=== PATIENT | female | born 1950 | race Caucasian/White ===

== ENCOUNTER 2021-06-12 14:03 | Emergency (ER) | payer BC, MEDICARE ==
--- NOTE | 2021-06-12 15:29 | EDM.PDOC ---
ED HPI GENERAL MEDICAL PROBLEM - General Chief Complaint: Chest Pain Stated Complaint: CHEST PAIN AND HIGH BLOOD PRESSURE Time Seen by Provider: 06/12/21 14:50 Source of Information: Reports: Patient History Limitations: Reports: No Limitations - History of Present Illness INITIAL COMMENTS - FREE TEXT/NARRATIVE: 71-year-old female, usually healthy, has had mild chest discomfort and mild cough for the past 2 days, no fevers or chills but just generalized malaise. She went into the urgent care to discuss her symptoms and they sent her to the emergency room. No nausea or vomiting, no significant shortness of breath, the pain does get a little worse with a deep breath. Now that she is here in the emergency room she is feeling better. No cardiac history. She is fully va ccinated for Covid. She was actually at the clinic this morning for follow-up blood tests because of her medications but she did not mention any of her symptoms at that time, when she called later to ask if she could come back and talk about the symptoms that is when they told her to come here. Onset: Gradual Duration: Day(s): (Symptoms for the last 2 days) Location: Reports: Chest (Mild chest pressure, no radiation) Quality: Reports: Pressure Associated Symptoms: Reports: Cough (Minimal cough), Malaise, Weakness. Denies: Fever/Chills, Nausea/Vomiting, Shortness of Breath Left Chest Pain Score (Numeric/FACES): 6 - Related Data Allergies Allergy/AdvReac Type Severity Reaction Status Date / Time codeine Allergy Intermediate Vomiting Verified 06/12/21 14:27 Home Meds: Home Meds Alendronate [Fosamax] 70 mg PO WEEKLY 06/12/21 [History] Levothyroxine [Synthroid] 88 mcg PO ACBREAKFAST 06/12/21 [History] lisinopriL [Lisinopril] 20 mg PO DAILY 06/12/21 [History] Past Medical History HEENT History: Reports: Otitis Media Cardiovascular History: Reports: High Cholesterol, Hypertension Gastrointestinal History: Reports: Diverticulosis Genitourinary History: Reports: Renal Disease 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 Denies: Fever, Chills HEENT: Denies: Throat Pain, Vision Change Respiratory: Reports: Cough. Denies: Shortness of Breath Cardiovascular: Reports: Chest Pain (Just mild pressure as mentioned in HPI). Denies: Palpitations GI/Abdominal: Denies: Abdominal Pain, Nausea, Vomiting : Reports: No Symptoms Musculoskeletal: Reports: No Symptoms Skin: Denies: Pallor, Diaphoresis Neurological: Reports: Dizziness (Mild dizziness). Denies: Trouble Speaking, Difficulty Walking, Gait Disturbance Psychiatric: Reports: No Symptoms ED EXAM, GENERAL - Physical Exam Exam: See Below Exam Limited By: No Limitations General Appearance: Alert, No Apparent Distress Eye Exam: Bilateral Eye: Normal Inspection Head: Atraumatic Neck: Supple, Non-Tender Respiratory/Chest: Lungs Clear Cardiovascular: Regular Rate, Rhythm. No: Extra Beats GI/Abdominal: Soft, Non-Tender Extremities: Normal Inspection. No: No Pedal Edema Neurological: Alert, Oriented Psychiatric: Normal Affect, Normal Mood Course - Vital Signs Last Recorded V/S: Last Vital Signs Temp 96.4 F L 06/12/21 14:38 Pulse 65 06/12/21 14:38 Resp 18 06/12/21 14:38 BP 178/97 H 06/12/21 14:38 Pulse Ox 100 06/12/21 14:38 - Orders/Labs/Meds Orders: Active Orders 24 hr Category Date Time Status Chest 2V [CR] Routine Exams 06/12/21 14:51 Taken Labs: Laboratory Tests 06/12/21 06/12/21 Range/Units 15:09 15:09 Troponin I < 0.017 (0.000-0.056) ng/mL SARS-CoV-2 RNA ([facility]) Negative (NEGATIVE) - Re-Assessments/Exams Free Text/Narrative Re-Assessment/Exam: 06/12/21 15:35 quality assurance monitor body looks normal, blood pressure is elevated but that improved after a few minutes without treatment. Covid test was obtained as well as a two-view chest x-ray and troponin. She had numerous blood test done at the clinic this morning for follow-up medications. Departure - Departure Time of Disposition: 16:17 Disposition: Home, Self-Care 01 Clinical Impression: Pleurisy - Discharge Information Instructions: Pleurisy, [id number] Referrals: PCP,None [Family Provider] - Forms: ED Department Discharge Care Plan Goals: Continue your current medications, add Tylenol as needed for discomfort and return anytime if you feel you are worsening such as fever, shortness of breath, or more persistent pain. Sepsis Event Note (ED) - Evaluation Sepsis Screening Result: No Definite Risk - Focused Exam Vital Signs: Vital Signs Temp Pulse Resp BP Pulse Ox 06/12/21 14:38 96.4 F L 65 18 178/97 H 100 06/12/21 14:21 96.4 F L 70 19 204/103 H 96 - My Orders Last 24 Hours: My Active Orders 06/12/21 14:51 Chest 2V [CR] Routine - Assessment/Plan Last 24 Hours: My Active Orders 06/12/21 14:51 Chest 2V [CR] Routine
--- NOTE | 2021-06-13 08:47 | CR ---
CHEST: 2 view CLINICAL HISTORY:Dyspnea COMPARISON:None FINDINGS: The heart size, pulmonary vascularity and hilar structures are normal. No infiltrate effusion or pneumothorax is seen. There are atherosclerotic changes in the aorta.. There is a mild pectus deformity IMPRESSION: No acute cardiopulmonary process.
== END 2021-06-12 16:22 | disposition home or self-care (01) ==
LOC: JP.ED 14:03
DX: R09.1 Pleurisy (principal); I10 Essential (primary) hypertension; E03.9 Hypothyroidism, unspecified; Z88.5 Allergy status to narcotic agent; Z79.899 Other long term (current) drug therapy; Z20.822 Contact with and (suspected) exposure to COVID-19
CPT/HCPCS: 36415; 71046; 71046-26; 84484; 99283-25; U0002